=== PATIENT | male | born 1995 | race African-American/Black ===

== ENCOUNTER 2021-01-24 12:58 | Emergency (ER) | payer BC ==
[~2021-01-24] VITALS: Ht 170.2 cm; Wt 71.7 kg
--- NOTE | 2021-01-24 12:58 | NUR ---
PT BIB SELF C/O DEPRESSION/SI "NO SPECIFIC PLAN" REQUESTING VOLUNTARY PSYCH ADMISSION TO [facility]. PT IS AAOX4, NOT IN RESPIRATORY DISTRESS, V/S STABLE, KEPT RESTED AND COMFORTABLE. SITTER AT BEDSIDE. WILL CONTINUE TO MONITOR.
--- NOTE | 2021-01-24 13:27 | NUR ---
SEEN AND EXAMINED BY .
[2021-01-24 13:50] LABS: BASOPHILS % (AUTO) 0.5 % (0.0-2.0); EOSINOPHILS % (AUTO) 5.9 % (0.0-6.0); HEMATOCRIT 40 % (39-51); HEMOGLOBIN 13.3 g/dL (13.5-17.5); LYMPHOCYTES # (AUTO) 2.2 K/uL (0.8-4.8); MEAN CORPUSCULAR HGB CONC 33 g/dl (31.0-36.0); MEAN CORPUSCULAR VOLUME 87 fL (80-96); MONOCYTES # (AUTO) 0.6 K/uL (0.1-1.30); NEUTROPHILS # (AUTO) 2.6 K/uL (1.8-8.9); NEUTROPHILS % (AUTO) 45.6 % (43.0-81.0); PLATELET COUNT (AUTO) 267 K/uL (150-450); RED BLOOD CELL COUNT(AUTO) 4.62 MIL/uL (4.5-6.0); WHITE BLOOD COUNT (AUTO) 5.7 K/uL (4.3-11.0)
[2021-01-24 13:56] LABS: CALCIUM, SERUM 8.1 mg/dL (8.5-10.1); CARBON DIOXIDE 28 mmol/L (21-32); CHLORIDE 108 mmol/L (98-107); CREATININE 0.8 mg/dL (0.6-1.3); GLUCOSE 98 mg/dL (74-106); SODIUM SERUM 140 mmol/L (136-145); UREA NITROGEN, BLOOD 12 mg/dL (7-18)
[2021-01-24 14:02] LABS: ALANINE AMINOTRANSFERASE 21 U/L (12-78); ALBUMIN 2.8 g/dL (3.4-5.0); ALKALINE PHOSPHATASE 61 U/L (46-116); ASPARTATE AMINOTRANSFERASE 12 U/L (15-37); BILIRUBIN,TOTAL 0.1 mg/dL (0.2-1.0); TOTAL PROTEIN, SERUM 6.6 g/dL (6.4-8.2)
[2021-01-24 14:03] LABS: ACETAMINOPHEN 0 ug/ml (10-30); ALCOHOL, BLOOD < 3 mg/dL (0-0)
--- NOTE | 2021-01-24 14:36 | NUR ---
URINE SPECIMEN COLLECTED AND SENT TO LAB.
[2021-01-24 14:52] LABS: BACTERIA,URINE Rare /HPF (None Seen); BILIRUBIN,URINE Negative (NEGATIVE); COLOR,URINE YELLOW (YELLOW); LEUKOCYTE ESTERASE ,URINE Negative (NEGATIVE); NITRITE, URINE Negative (NEGATIVE); PH,URINE 5.5 (5.0-8.0); PROTEIN,URINE Negative (NEGATIVE); RBC,URINE 0-2 /HPF (0-2); SQUAMOUS EPITHELIAL CELL,UR Rare /HPF (None Seen); UGLUCOSE Negative (NEGATIVE); UROBILINOGEN,URINE 0.2 EU/dL (0.2); WBC,URINE 0-2 /HPF (0-3)
--- NOTE | 2021-01-24 15:21 | NUR ---
"SS Consult: SS Consult requested for SI & Homelessness. The pt. is 26-year-old black male who presents to the ED with C/O SI w/no plan. SW met with pt. The pt. appears unkempt is A&O X4 and makes poor eye contact. Pt. has facial twitch. Pt.s mood is dysphoric, with stressed affect. Pt. stated he has Hx. of mood disorder could not specify and stated he was recently prescribed Abilify and is non-compliant with medication as they recently changed his medication. Per pt. he has attempted suicide by OD on Seroquel in the past. Per pt. he is experiencing AH that tell him something will happen to me. Pt. denies HI and denies visual hallucinations. SW offered pt. voluntary admission at a psychiatric hospital for treatment and pt. is agreeable. Pt. is currently homeless. Pt. states he was recently staying with his sister, Dakota Garcia [phone] in her home. Pt. states he receives General Relief. SW explored pt.s ETOH/ drug use. Pt. states he drinks socially and stated he smokes cigarettes daily and weed sometimes. Plan: SW to be referred pt. to [facility] [[address] [place] [address] FAX:[phone]] for inpatient psychiatric treatment. Patient signed homeless waiver & it was placed in the pt.s chart. SW provided pt. with the following homeless resources and pt. accepted them: Substance Abuse resources provided included: [facility] Substance Abuse Self-Helpline ([facility]) ; CRI -HELP [address] [facility]. [place] [address] ; [facility] [address] [facility] [address] ; [facility] Rehabilitation Program [address] [facility] [address] ; [facility] [address] [facility] [address] ; [facility] [address] [facility] [address] ; Latricia [facility] [place] [address] [facility] [id number] ; [facility] Substance Abuse Helpline(SAS)-[facility] ; [facility] ; Cidar [place]; [facility]; [facility] [place]; [facility] Reji Varela; [facility]; [facility]; [facility] [place], [facility]. [facility]; Alcoholics Anonymous -SFV; Zu-Mkcm-Ftoyoxd ; Marijuana Anonymous -SFV; Narcotics Anonymous www.na.org; Year-round shelters: [place] [address], [place] [id number] ; [facility] [place] [address] [place] [address]; [facility] Dgktyet4098 [facility] [address] Winter Shelters: Gisselle Bridgette Swanson Provider: [place] [facility] [place] Address: [address] [facility] [place], [address] # of Beds: 47 Population Served: [facility] 6 | [facility] Gaby Harkins [place] Provider: Home at Last Address: [address] [place], [address] # of Beds: 66 Population Served: Kelby [place] Provider: First to Serve Address: [address] [facility], [address] # of Beds: 56 Population Served: Kelby Swanson Provider: SSG/ [facility] Address: [address] [facility] [address] # of Beds: 49 Population Served: Coed SPA 8 | Clarence Rittman Provider: First to Serve Address: [address] [facility] [address] # of Beds: 37 Population Served: Coed Hygiene: [facility]: [address] [place] ; [facility] [place] [facility] [address] [facility] ; [facility] [address], [place] . Food Resources: [place] [facility] at [facility]- [address] [facility]; Meet Each Need with Dignity ([facility]) [address] [facility]; [facility] 7525 [facility]; [facility] 3068 [facility]. Mental Health resources provided: [facility] [address] [place], [place] [id number] ; [facility] [place] [address] [facility] [address], [place], [place] [id number] ; [facility] [address] [place], [place] [phone] ; [facility] [place], [place] [id number] Healthcare Clinics: [facility] [address] [facility], [address] [place]. [place] ; [facility] [address] [facility] [address] [place] [address]; [facility] [address] [facility]. [place] [phone] Counseling--Outpatient [facility] [address] [facility], [place] [address] (Specializes in in-depth psychotherapy for emotional distress: anxiety, depression, interpersonal conflicts, life transitions, childhood abuse) [facility] [address] [place], [place] [address] (Assist with solving problem marital difficulties, separation & divorce, aging parents, & grief, chronic & terminal illness) [facility] [address] [place], [place] [phone] (Deal with loss & grief, anxiety, marital difficulties) Homebound/Mental Health Services [address] [place] [address] (Provide in-home mental services to people who are incapable of leaving their homes) [facility] Needs of the Elderly Senior Service/Resource Center [address] [place] [address] [facility] [address] Mendoza raphael [place] [phone] PSYCHIATRIC OUTPATIENT SERVICES [facility] Partial Hospitalization and Intensive Outpatient Program (Managed Care and Republic Only)[address] Lucio Pisano. [facility] [phone] [facility] Partial Hospitalization and Outpatient [id number] [address] [place], [place] [phone] [facility] Partial Hospitalization and Outpatient [id number] [place] Nichole amanda. [place], [place] [phone] [facility] [id number] [place] [phone] [facility] Partial Hospitalization and Outpatient [id number] Emelita [facility] Reji Varela [phone] "
--- NOTE | 2021-01-24 15:22 | NUR ---
SW notified ED nursign staff to follow up with faxing clinicals to [facility] as SW unable to follow up at a later time.
[2021-01-24] MEDS ORDERED: ARIPIPRAZOLE 5 MG TABLET PO ONE (16:00)
[2021-01-24] MEDS ORDERED: ARIPIPRAZOLE 2 MG TABLET ONE (16:24)
--- NOTE | 2021-01-24 17:18 | NUR ---
CALLED [facility] [phone] [facility] WILL UPDATE US ABOUT BEDS.
--- NOTE | 2021-01-24 17:29 | NUR ---
[facility] UND[facility]. RAM PLEASE CALL [phone]
--- NOTE | 2021-01-24 17:36 | NUR ---
TRANSPORT CALLED [facility] ETA IS 45-60 MINS.
[2021-01-24 18:25] VITALS: BP 120/72
--- NOTE | 2021-01-24 18:26 | NUR ---
REPORT GIVEN TO ANI CONNORS FOR [facility].
== END 2021-01-24 18:41 ==
LOC: ER 13:08
DX: F29 Unspecified psychosis not due to a substance or known physiological condition (principal); R45.851 Suicidal ideations; F39 Unspecified mood [affective] disorder; Z91.14 Patient's other noncompliance with medication regimen; Z20.822 Contact with and (suspected) exposure to COVID-19; Z59.0 Homelessness
CPT/HCPCS: 36415; 80048; 80076; 80143; 80307; 80320; 81001; 85025; 87426; 99285; C9803; G0480; J7030

== ENCOUNTER 2021-01-28 09:42 | Emergency (ER) | payer BC ==
[~2021-01-28] VITALS: Ht 170.2 cm; Wt 71.2 kg
--- NOTE | 2021-01-28 09:45 | NUR ---
THE PATIENT IS BIB RA 30 FROM [facility] VN,SYNCOPAL EPISODE WHILE HAVING HIS BLOOD DRAWN. ALERT AND ORIENTED X4. IN ROOM AIR AND DENIES SOB. RESPIRATION REGULAR AND UNLABORED. DENIES PAIN. WILL CONTINUE TO MONITOR THE PATIENT.
--- NOTE | 2021-01-28 10:10 | NUR ---
EMERGENCY CONTACT, [facility],
--- NOTE | 2021-01-28 10:21 | NUR ---
[facility] TRANSPORT FOR JARROD AGMBINO [facility]. ETA IS 1100
--- NOTE | 2021-01-28 10:31 | NUR ---
PER PT REQUEST, CALLED [facility] AND UPDATED
[2021-01-28 11:22] VITALS: BP 124/75
--- NOTE | 2021-01-28 11:22 | NUR ---
Patient discharged to home in stable condition. Written and verbal after care instructions given. Patient verbalizes understanding of instruction.
== END 2021-01-28 11:23 ==
LOC: ER 09:45
DX: R55 Syncope and collapse (principal); F39 Unspecified mood [affective] disorder; F17.200 Nicotine dependence, unspecified, uncomplicated; Z88.0 Allergy status to penicillin